=== PATIENT | female | born 1975 | race Caucasian/White ===

== ENCOUNTER 2019-02-02 21:26 | Emergency (ER) | payer BC ==
[~2019-02-02] VITALS: Ht 160 cm; Wt 81.7 kg
--- OUTSIDE RECORDS SUMMARY | 2019-02-02 21:28 | XMS ---
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 EElio VISIT COUNT (12 MO.) 1 DEBBIE Edward TOTAL 1 NOTE: Visits indicate total known visits. ED/UCC VISIT TRACKING (12 MO.) 02/02/2019 21:26 DEBBIE Carbajal OR TYPE: Emergency COMPLAINT: - SOB INPATIENT VISIT TRACKING (12 MO.) No inpatient visits to display in this time frame [email or web address]
[2019-02-02] MEDS ORDERED: XANAX1 MG PO (21:44)
--- NOTE | 2019-02-03 15:34 | EKG ---
[facility] [address] [place] [address] Signed Sinus tachycardia with occasional premature ventricular complexes Cannot rule out Anterior infarct , age undetermined Abnormal ECG No previous ECGs available Confirmed by HARLEY BRIONES MD ([id number] on 02/03/2019 3:34:33 PM Electronically Signed By: HARLEY BRIONES MD 02/03/19 1534 PATIENT NAME: TERESE LEE Prince Electrocardiogram DATE OF : 77 PHYSICIAN: HARLEY BRIONES MD REPORT #: [id number] REPORT IS CONFIDENTIAL AND NOT TO BE RELEASED WITHOUT AUTHORIZATION
== END 2019-02-02 22:19 | disposition home or self-care (01) ==
LOC: ED 21:26
DX: F41.9 Anxiety disorder, unspecified (principal); F17.200 Nicotine dependence, unspecified, uncomplicated; Z88.2 Allergy status to sulfonamides; Z88.8 Allergy status to other drugs, medicaments and biological substances
CPT/HCPCS: 71046; 93005; 93010; 99283-25

== ENCOUNTER 2021-10-16 22:50 | Emergency (ER) | payer BC ==
[~2021-10-16] VITALS: Ht 160 cm; Wt 81.7 kg
[~2021-10-16 22:50] MED LIST: XANAX1 MG PO
--- OUTSIDE RECORDS SUMMARY | 2021-10-16 22:52 | XMS ---
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 Spencer has no Care Guidelines for this patient. Amanda VISIT COUNT (12 MO.) 1 DEBBIE Edward TOTAL 1 NOTE: Visits indicate total known visits. ED/C VISIT TRACKING (12 MO.) 10/16/2021 22:51 DEBBIE Carbajal OR TYPE: Emergency COMPLAINT: - SUICIDAL INPATIENT VISIT TRACKING (12 MO.) No inpatient visits to display in this time frame [email or web address]
--- NOTE | 2021-10-17 06:36 | EKG ---
[facility] [address] [facility] [address] [place], [place] [address] Signed Normal sinus rhythm Normal ECG No previous ECGs available Confirmed by ANGELA LIZAMA MD ([id number] on 10/17/2021 6:36:33 AM Electronically Signed By: ANGELA LIZAMA MD 10/17/21 0636 PATIENT NAME: TERESE LEE Prince Electrocardiogram DATE OF : 77 PHYSICIAN: ANGELA LIZAMA MD REPORT #: [id number] REPORT IS CONFIDENTIAL AND NOT TO BE RELEASED WITHOUT AUTHORIZATION
== END 2021-10-17 16:05 | disposition home or self-care (01) ==
LOC: ED 22:50
DX: R45.851 Suicidal ideations (principal); F17.200 Nicotine dependence, unspecified, uncomplicated; Z88.2 Allergy status to sulfonamides; Z79.899 Other long term (current) drug therapy; Z88.8 Allergy status to other drugs, medicaments and biological substances
CPT/HCPCS: 36415; 51701; 51702; 80053; 81001; 82803; 84443; 84703; 85025; 93005; 93010; 99285-25; G0480; J7030